=== PATIENT | male | born 1965 | race Caucasian/White ===

== ENCOUNTER 2020-01-08 10:16 | Emergency (ER) | payer MEDICAID, SELFPAY ==
[2020-01-08 10:27] VITALS: BP 120/78; PULSE 102; RESP 14; TEMP 36.8; O2SAT 100
== END 2020-01-08 10:20 | disposition left against medical advice (07) ==
LOC: EXPBETH 10:22
PROVIDERS: Emergency Provider Nurse Practitioner Family; PCP Family Medicine
DX: Z53.21 Procedure and treatment not carried out due to patient leaving prior to being seen by health care provider (principal)
CPT/HCPCS: 99199

== ENCOUNTER 2020-11-14 11:37 | Emergency (ER) | payer OTHER, SELFPAY ==
--- NOTE | ~2020-11-14 | XR_ITS ---
XR ankle RT min 3V DATE: 11/14/2020 12:03 INDICATION: Twisted ankle and foot last night. Right ankle and foot pain, swelling TECHNIQUE: 4 views of right ankle COMPARISON: None FINDINGS: Diffuse osteopenia. No fracture or dislocation of the ankle or disruption of the ankle mortise is detected. Very prominent posterior calcaneal enthesopathy. IMPRESSION: Diffuse osteopenia Prominent posterior calcaneal enthesopathy Reviewed, dictated and finalized at location A.
--- NOTE | ~2020-11-14 | XR_ITS ---
XR foot RT min 3V DATE: 11/14/2020 12:03 INDICATION: Right foot pain and swelling following twisting injury last night TECHNIQUE: 4 views COMPARISON: None FINDINGS: Prominent posterior calcaneal enthesopathy. Osteopenia. There is mild osteoarthritis at the first metatarsophalangeal joint. No fracture or dislocation, periosteal reaction or bone destruction is detected. IMPRESSION: Osteopenia Posterior plantar calcaneal enthesopathy Osteoarthritis at first metatarsophalangeal joint No recent fracture or dislocation is detected Reviewed, dictated and finalized at location A.
--- NOTE | 2020-11-14 11:42 | ED.LOWEXIN ---
HPI - Extremity Injury (Lower) General Chief Complaint: Extremity Injury, Lower Stated Complaint: right ankle injury Time Seen by Provider: 11/14/20 11:42 Source: patient and RN notes reviewed History of Present Illness HPI Narrative: Patient is a 55-year-old male who presents the urgent care with complaints of a right ankle injury. Patient states he stepped off a step last night and rolled the right ankle inward. Patient states that he has been using frozen blueberries for the pain but denies of any use of [id number] medications. Denies of any other injuries. No other acute complaints. No acute distress noted. Patient read the plan of care. Some parts of this dictation were generated by voice recognition software and may contain typographical and/or grammatical inaccuracies. Related Data Home Medications Medication Instructions Recorded Confirmed amitriptyline 11/14/20 duloxetine mg PO 11/14/20 meloxicam 11/14/20 metoprolol succinate PO 11/14/20 sumatriptan succinate mg PO 11/14/20 topiramate 11/14/20 Review of Systems Review of Systems: Narrative: CONSTITUTIONAL: Denies fever, chills, or sweats. EYES: Denies visual changes, redness, or discharge. ENT: Denies rhinorrhea, congestion, sore throat, or otalgia. CARDIOVASCULAR: Denies chest pain, palpitations, or edema. RESPIRATORY: Denies cough or dyspnea. GASTROINTESTINAL: Denies abdominal pain, nausea, vomiting, or diarrhea. GENITOURINARY: Denies dysuria or hematuria. SKIN: Denies rash or itching. MUSCULOSKELETAL: Reports of right ankle pain and swelling NEUROLOGIC: Denies headache, numbness, or weakness. All other systems reviewed are negative, except as documented in HPI. PMFSH Comments At the time of my signature, I reviewed and agree with the nursing past medical, surgical, social, and family history. There is no relevant family history pertinent to the patient complaint. Exam Narrative: Exam Narrative: GENERAL: This is a well-nourished, well-developed patient, in no apparent distress. HEAD: normocephalic, atraumatic. EYES: PERRL. Sclera clear/white. Vision is grossly intact. EARS: External ears normal NOSE: External nose normal with no obvious nasal discharge, nares without redness, no rhinorrhea. THROAT: Mucous membranes moist NECK: Neck supple CARDIOVASCULAR: Regular rate and rhythm without murmurs, gallops, or rubs. RESPIRATORY: Clear to auscultation. Breath sounds equal bilaterally. No wheezes, rales, or rhonchi. SKIN: warm, intact with no suspicious lesions or rash, good texture and turgor. NEURO: awake, alert, and oriented to person, place and time. There were no obvious focal neurologic abnormalities. EXTREMITIES: Moderate edema and ecchymosis noted to the lateral right malleolus extending to the dorsal lateral aspect of the right foot. Positive right pedal pulse with capillary refill less than 2 seconds. Range of motion not tested due to pain. Exacerbated pain with weightbearing. Moderate ecchymosis above digits 2 through 4. Course Vital Signs Vital signs: Vital Signs Temperature 99.6 F 11/14/20 11:48 Pulse Rate 95 11/14/20 11:48 Respiratory Rate 18 11/14/20 11:48 Blood Pressure 129/91 H 11/14/20 11:48 Pulse Oximetry 100 11/14/20 11:48 Temperature 99.6 F 11/14/20 11:48 Pulse Rate 95 11/14/20 11:48 Respiratory Rate 18 11/14/20 11:48 Blood Pressure 129/91 H 11/14/20 11:48 Pulse Oximetry 100 11/14/20 11:48 Reviewed-patient is informed that they may have pre-hypertension or hypertension based on a blood pressure reading in the department. I recommend the patient call the primary care provider listed on their discharge instructions or a physician of their choice this week to arrange follow-up for further evaluation of possible pre-hypertension or hypertension. MDM - Extremity Injury (Lower) MDM Narrative Medical decision making narrative: Reviewed x-ray results with the patient. He is aware that x-
[2020-11-14 11:48] VITALS: BP 129/91; PULSE 95; RESP 18; TEMP 37.6; O2SAT 100
== END 2020-11-14 12:20 | disposition home or self-care (01) ==
PROVIDERS: Emergency Provider Nurse Practitioner Family; PCP Family Medicine
DX: S93.401A Sprain of unspecified ligament of right ankle, initial encounter (principal); S96.911A Strain of unspecified muscle and tendon at ankle and foot level, right foot, initial encounter; X50.9XXA Other and unspecified overexertion or strenuous movements or postures, initial encounter; I10 Essential (primary) hypertension; F41.9 Anxiety disorder, unspecified; G62.9 Polyneuropathy, unspecified
CPT/HCPCS: 73610; 73630; 99213; G0463

== ENCOUNTER 2021-12-26 11:41 | Emergency (ER) | payer OTHER, SELFPAY ==
[2021-12-26 11:47] VITALS: BP 106/59; PULSE 83; RESP 16; TEMP 36.7; O2SAT 100
--- NOTE | 2021-12-26 12:13 | ED.GENADULT ---
HPI - General Adult General Chief complaint: Unspecified Stated complaint: Swelling under chin Time Seen by Provider: 12/26/21 12:00 Source: patient, family, RN notes reviewed and old records reviewed Mode of arrival: ambulatory Limitations: no limitations History of Present Illness HPI narrative: 56 year old male presents accompanied by his daughter with complaints of swelling of his neck which has been ongoing since the first part of November. Patient was diagnosed with throat cancer in August and had a trach and feeding tube placed at that time and he has been receiving chemotherapy and radiation treatments. Patient reports that he was given antibiotic of Augmentin on 12/03/2021 and he did not complete all doses of the medication stated difficulty getting it crushed and put through his feeding tube. Patient has noted swelling of his neck in soft tissue area below his chin and above trach region is somewhat firm to palpation no redness or warmth of tissue noted, Patient denies any change in his breathing, no Kai angina noted, patient is edentulous. Patient continues to use tobacco daily. MD complaint: soft tissue swelling of neck Treatments prior to arrival: other (antibiotic 12/03/2021 but did not complete) Related Data Home Medications Medication Instructions Recorded Confirmed fentanyl 50 mcg/hr transdermal 1 patch transdermal Q3D 12/26/21 12/26/21 patch oxycodone 10 mg tablet 10 mg PO Q6H 12/26/21 12/26/21 Allergies Allergy/AdvReac Type Severity Reaction Status Date / Time No Known Allergies Allergy Verified 12/26/21 12:07 Review of Systems Review of Systems: CONSTITUTIONAL: Denies fever, chills, or sweats. EYES: Denies visual changes, redness, or discharge. ENT: Denies rhinorrhea, congestion, positive sore throat, or otalgia.positive for soft tissue swelling to tissue above trach to chin, no warmth to skin area CARDIOVASCULAR: Denies chest pain, palpitations, or edema. RESPIRATORY: Denies cough or dyspnea, has trach in place GASTROINTESTINAL: Denies abdominal pain, nausea, vomiting, or diarrhea, has feeding tube GENITOURINARY: Denies dysuria or hematuria. SKIN: Denies rash or itching. MUSCULOSKELETAL: chronic back pain, joint pain, or myalgia. NEUROLOGIC: Denies headache, numbness, or weakness. PSYCHIATRIC: Positive anxiety or depression. All systems reviewed & are unremarkable except as noted in HPI and below PMFSH Past Medical History Medical History (Updated 12/30/21 @ 10:26 by Aleja Bowens NP) Back pain Feeding by G-tube FHx: throat cancer Headache Hypertension Neuropathy Tracheostomy in place Surgical History Surgical History (Updated 12/30/21 @ 10:26 by Aleja Bowens NP) History of appendectomy Social History Social History (Updated 12/30/21 @ 10:27 by Aleja Bowens NP) Smoking packs per day: 0.5 Smoking cigarettes per day: 10.0 Years smoked: 30 Smoking pack-years: 15.00 Smoking status: Current every day smoker Alcohol intake: former Substance use type: opiates Last use: pain control Living arrangements: with family Comments At time of signature, agree with nursing past medical, surgical, social and family history. There is no relevant family history pertinent to the presenting complaint Exam Narrative: GENERAL:chronic ill-appearing, fair-nourished, and in no acute distress.anxious HEAD: Normocephalic, atraumatic. EYES: PERRLA and EOMI. ENT: Nares clear, no rhinorrhea or epistaxis. Mucous membranes moist.TM's normal throat with some redness with no lesions or exudates noted or tonsil swelling, has trach in place with soft tissue swelling noted to tissue above .trach to chin, mild firmness of tissue noted but no warmth of tissue NECK: Supple. no palpable nodes, swelling of tissue above trach to chin, full mobility of neck trach in place CHEST: Clear to auscultation. No respiratory distress. HEART: Regular rate and rhythm. No murmur heard. Normal peripheral pu
== END 2021-12-26 12:35 | disposition home or self-care (01) ==
PROVIDERS: Emergency Provider Registered Nurse; PCP Family Medicine
DX: R22.1 Localized swelling, mass and lump, neck (principal); F17.210 Nicotine dependence, cigarettes, uncomplicated; I10 Essential (primary) hypertension; G62.9 Polyneuropathy, unspecified; Z85.818 Personal history of malignant neoplasm of other sites of lip, oral cavity, and pharynx; C14.0 Malignant neoplasm of pharynx, unspecified; Z93.0 Tracheostomy status; Z93.1 Gastrostomy status; Z79.899 Other long term (current) drug therapy
CPT/HCPCS: 99213; G0463